=== PATIENT | female | born 1945 | race Caucasian/White ===

== ENCOUNTER 2022-12-19 14:04 | Outpatient (CLI) | payer BC, MEDICARE | END 2022-12-19 14:05 | disposition home or self-care (01) | LOC: CSHMRI 14:04 | PROVIDERS: ATTEND Orthopaedic Surgery Hand Surgery | DX: M67.431 Ganglion, right wrist (principal); S63.591A Other specified sprain of right wrist, initial encounter; M85.68 Other cyst of bone, other site ==